=== PATIENT | male | born 2000 | race African-American/Black ===

== ENCOUNTER 2023-03-14 00:58 | Emergency (ER) | payer SELFPAY ==
[2023-03-14] MEDS ORDERED: Ibuprofen 800 MG TAB ONE (01:50)
[2023-03-14] MEDS ORDERED: Acetaminophen 500 MG TAB ONE (01:50)
== END 2023-03-14 03:31 | disposition home or self-care (01) ==
LOC: ERS 00:58
DX: J11.1 Influenza due to unidentified influenza virus with other respiratory manifestations (principal)
CPT/HCPCS: 93005

== ENCOUNTER 2024-03-15 20:08 | Emergency (ER) | payer SELFPAY ==
[2024-03-15] MEDS ORDERED: Ketorolac Tromethamine 30 MG (1 mL) VIAL ONE (20:44)
== END 2024-03-15 21:05 | disposition home or self-care (01) ==
LOC: ERS 20:08
DX: L03.115 Cellulitis of right lower limb (principal)
CPT/HCPCS: 96372; J1885

== ENCOUNTER 2025-09-01 01:02 | Emergency (ER) | payer SELFPAY | END 2025-09-01 03:54 | disposition home or self-care (01) | LOC: ERS 01:02 | DX: R21 Rash and other nonspecific skin eruption (principal) | CPT/HCPCS: 99282 ==